=== PATIENT | male | born 1945 | race Caucasian/White ===

== ENCOUNTER 2016-11-12 18:22 | Emergency (ER) | payer MEDICARE, OTHER ==
[~2016-11-12] VITALS: Ht 185.4 cm; Wt 127.0 kg
--- OUTSIDE RECORDS SUMMARY | 2016-11-12 18:28 | XMS REPORT | Continuity of Care Document ---
Author Author [facility] Organization [facility] Address Unknown Phone Unavailable Care Team Providers Care Drill Grinder Name Role Phone DONNELL LUCIANO MD PCP Insurance Providers Payer Name Policy Number Subscriber Name Relationship [employer] [id number] Fela Christopher 18 Self / Same As Patient For Life [id number] Fela Christopher 18 Self / Same As Patient Advance Directives Directive Response Recorded Date/Time Advance Directives No 10/29/16 12:30pm Resuscitation Status Full Code 10/29/16 12:30pm Chief Complaint and Reason for Visit Chief Complaint Back Problems Reason for Visit Exacerbation of chronic back pain [id number] Problems Active Problems Medical Problem Onset Date Status Exacerbation of chronic back pain Unknown Acute Lumbar stenosis Unknown Acute Medications No medication information available. Social History Social History Problem Response Recorded Date/Time Alcohol Use Denies Use 10/29/2016 12:30pm Recreational Drug Use No 10/29/2016 12:30pm Recent Foreign Travel No 10/29/2016 12:48pm Recent Infectious Disease Exposure No 10/29/2016 12:48pm Smoking Status Unknown if Ever Smoked 10/29/2016 12:30pm Query Response Start Date Stop Date Smoking Status Unknown if Ever Smoked Hospital Discharge Instructions No hospital discharge instructions. Plan of Care Discharge Date 10/29/16 5:25pm Disposition 02 XFER SHT-TRM HOSP Condition at Discharge Improved Prescriptions See Medication Section Referrals DONNELL LUCIANO MD - Primary Care Physician Functional Status No functional status results. Allergies, Adverse Reactions, Alerts No known allergies. Immunizations No immunization records. Vital Signs Acute Vital Signs Vital Response Date/Time Temperature (Fahrenheit) 97.2 degrees F (97.6 - 99.5) 10/29/2016 5:25pm Temperature (Calculated Celsius) 36.94550 degrees C (36.4 - 37.5) 10/29/2016 5:25pm Temperature Source Temporal 10/29/2016 5:25pm Pulse Rate (adult) 70 bpm (60 - 90) 10/29/2016 5:25pm Respiratory Rate 16 bpm (12 - 24) 10/29/2016 5:25pm O2 Sat by Pulse Oximetry 98 % (88 - 100) 10/29/2016 5:25pm Blood Pressure 132/68 mm Hg 10/29/2016 5:25pm Pain Numeric Pain Scale 2 10/29/2016 5:25pm Height (Feet) 6 feet 10/29/2016 12:48pm Height (Inches) 2 inches 10/29/2016 12:48pm Height (Calculated Centimeters) 187.206103 cm 10/29/2016 12:48pm Weight (Pounds) 250 pounds 10/29/2016 12:48pm Weight (Calculated Kilograms) 113.402688 kilograms 10/29/2016 12:48pm Capillary Refill Capillary Refill Less Than 3 Seconds 10/29/2016 12:48pm Height 6 ft 2 in Weight 250 lb Body Mass Index 32.1 kg/m^2 Results Laboratory Results Test Name Result Units Flags Reference Collection Date/Time Result Date/ Time Comments White Blood Count 7.3 10^3/uL 4.3-11.0 10/29/2016 1:45pm 10/29/2016 1: 51pm Red Blood Count 3.43 10^6/uL L 4.35-5.85 10/29/2016 1:45pm 10/29/2016 1: 51pm Hemoglobin 10.6 G/DL L 13.3-17.7 10/29/2016 1:45pm 10/29/2016 1:51pm Hematocrit 32 % L 40-54 10/29/2016 1:45pm 10/29/2016 1:51pm Mean Corpuscular Volume 93 FL 80-99 10/29/2016 1:45pm 10/29/2016 1: 51pm Mean Corpuscular Hemoglobin 31 PG 25-34 10/29/2016 1:45pm 10/29/2016 1: 51pm Mean Corpuscular Hemoglobin Concent 33 G/DL 32-36 10/29/2016 1:45pm 1:51pm Red Cell Distribution Width 12.9 % 10.0-14.5 10/29/2016 1:45pm 2015 1:51pm Platelet Count 197 10^3/uL 130-400 10/29/2016 1:45pm 10/29/2016 1:51pm Mean Platelet Volume 9.1 FL 7.4-10.4 10/29/2016 1:45pm 10/29/2016 1: 51pm Neutrophils (%) (Auto) 54 % 42-75 10/29/2016 1:45pm 10/29/2016 1:51pm Lymphocytes (%) (Auto) 28 % 12-44 10/29/2016 1:45pm 10/29/2016 1:51pm Monocytes (%) (Auto) 11 % 0-12 10/29/2016 1:45pm 10/29/2016 1:51pm Eosinophils (%) (Auto) 6 % 0-10 10/29/2016 1:45pm 10/29/2016 1:51pm Basophils (%) (Auto) 1 % 0-10 10/29/2016 1:45pm 10/29/2016 1:51pm Neutrophils # (Auto) 4.0 X 10^3 1.8-7.8 10/29/2016 1:45pm 10/29/2016 1: 51pm Lymphocytes # (Auto) 2.0 X 10^3 1.0-4.0 10/29/2016 1:45pm 10/29/2016 1: 51pm Monocytes # (Auto) 0.8 X 10^3 0.0-1.0 10/29/2016 1:45pm 10/29/2016 1: 51pm Eosinophils # (Auto) 0.5 10^3/uL H 0.0-0.3 10/29/2016 1:45pm 10/29/2016 1 :51pm Basophils # (Auto) 0.1 10^3/uL 0.0-0.1 10/29/2016 1:45pm 10/29/2016 1: 51pm Urine Color YELLOW 10/29/2016 1:15pm 10/29/2016 1:43pm Urine Clarity CLEAR 10/29/2016 1:15pm 10/29/2016 1:43pm Urine pH 5 5-9 10/29/2016 1:15pm 10/29/2016 1:43pm Urine Specific [place] 1.020 1.016-1.022 10/29/2016 1:15pm 2015 1:43pm Urine Protein NEGATIVE NEGATIVE 10/29/2016 1:15pm 10/29/2016 1:43pm Urine Glucose (UA) NEGATIVE NEGATIVE 10/29/2016 1:15pm 10/29/2016 1: 43pm Urine RBC (Auto) NEGATIVE NEGATIVE 10/29/2016 1:15pm 10/29/2016 1: 43pm Urine Ketones NEGATIVE NEGATIVE 10/29/2016 1:15pm 10/29/2016 1:43pm Urine Nitrite NEGATIVE NEGATIVE 10/29/2016 1:15pm 10/29/2016 1:43pm Urine Bilirubin NEGATIVE NEGATIVE 10/29/2016 1:15pm 10/29/2016 1: 43pm Urine Urobilinogen NORMAL MG/DL NORMAL 10/29/2016 1:15pm 10/29/2016 1: 43pm Urine Leukocyte Esterase NEGATIVE NEGATIVE 10/29/2016 1:15pm 2015 1:43pm Urine RBC NONE /HPF 10/29/2016 1:15pm 10/29/2016 1:43pm Urine WBC NONE /HPF 10/29/2016 1:15pm 10/29/2016 1:43pm Urine Bacteria NEGATIVE /HPF 10/29/2016 1:15pm 10/29/2016 1:43pm Urine Squamous Epithelial Cells RARE /HPF 10/29/2016 1:15pm 2015 1:43pm Urine Crystals NONE /LPF 10/29/2016 1:15pm 10/29/2016 1:43pm Urine Casts NONE /LPF 10/29/2016 1:15pm 10/29/2016 1:43pm Urine Mucus NEGATIVE /LPF 10/29/2016 1:15pm 10/29/2016 1:43pm Urine Culture Indicated NO 10/29/2016 1:15pm 10/29/2016 1:43pm Sodium Level 135 MMOL/L 135-145 10/29/2016 1:20pm 10/29/2016 1:53pm Potassium Level 4.9 MMOL/L 3.6-5.0 10/29/2016 1:20pm 10/29/2016 1:53pm Chloride Level 106 MMOL/L 98-107 10/29/2016 1:20pm 10/29/2016 1:53pm Carbon Dioxide Level 23 MMOL/L 21-32 10/29/2016 1:20pm 10/29/2016 1: 53pm Anion Gap 6 MMOL/L 5-14 10/29/2016 1:20pm 10/29/2016 1:53pm Blood Urea Nitrogen 29 MG/DL H 7-18 10/29/2016 1:20pm 10/29/2016 1:53pm Creatinine 1.29 MG/DL 0.60-1.30 10/29/2016 1:20pm 10/29/2016 1:53pm BUN/Creatinine Ratio 22 10/29/2016 1:20pm 10/29/2016 1:53pm Estimat Glomerular Filtration Rate 55 10/29/2016 1:20pm 10/29/2016 1:53pm GFR INTERPRETIVE DATA UNITS FOR ESTIMATED GFR (eGFR): mL/min/1.73 M2 REFERENCE RANGE FOR ESTIMATED GFR (eGFR) eGFR NORMAL eGFR >60 MODERATELY DECREASED eGFR 30-59 SEVERLY DECREASED eGFR 15-29 KIDNEY FAILURE <15 (OR DIALYSIS) Glucose Level 112 MG/DL H 70-105 10/29/2016 1:20pm 10/29/2016 1:53pm Calcium Level 9.1 MG/DL 8.5-10.1 10/29/2016 1:20pm 10/29/2016 1:53pm Total Bilirubin 0.5 MG/DL 0.1-1.0 10/29/2016 1:20pm 10/29/2016 1:53pm Alkaline Phosphatase 101 U/L 40-136 10/29/2016 1:20pm 10/29/2016 1: 53pm Aspartate Amino Transf (AST/SGOT) 19 U/L 5-34 10/29/2016 1:20pm 2015 1:53pm Alanine Aminotransferase (ALT/SGPT) 12 U/L 0-55 10/29/2016 1:20pm 10/29 1:53pm Total Protein 7.3 G/DL 6.4-8.2 10/29/2016 1:20pm 10/29/2016 1:53pm Albumin 3.8 G/DL 3.2-4.5 10/29/2016 1:20pm 10/29/2016 1:53pm Procedures No known history of procedures. Encounters Encounter Location Arrival/Admit Date Discharge/Depart Date Attending Provider Departed Emergency Room [facility] 10/29/16 11:54am 5:25pm KAIDEN IVEY MD Recent Diagnosis
[2016-11-12] MEDS ORDERED: NALOXONE 2 MG/2 ML (NARCAN) SYR ONE (18:37)
[2016-11-12] MEDS ORDERED: NALOXONE 2 MG/2 ML (NARCAN) SYR IV ONE (18:45)
[2016-11-12 19:08] LABS: BASOPHILS % (AUTO) 1 % (0-10); EOSINOPHILS % (AUTO) 13 % (0-10); LYMPHOCYTES # (AUTO) 1.4 X 10^3 (1.0-4.0); LYMPHOCYTES % (AUTO) 19 % (12-44); MEAN CORPUSCULAR HEMOGLOBIN 29 PG (25-34); MEAN CORPUSCULAR HGB CONC 32 G/DL (32-36); MEAN CORPUSCULAR VOLUME 90 FL (80-99); MEAN PLATELET VOLUME 9.4 FL (7.4-10.4); MONOCYTES # (AUTO) 0.5 X 10^3 (0.0-1.0); MONOCYTES % (AUTO) 7 % (0-12); NEUTROPHILS # (AUTO) 4.7 X 10^3 (1.8-7.8); NEUTROPHILS % (AUTO) 61 % (42-75); PLATELET COUNT 404 10^3/uL (130-400); RED BLOOD COUNT 2.79 10^6/uL (4.35-5.85); RED CELL DISTRIBUTION WIDTH 13.8 % (10.0-14.5); WHITE BLOOD COUNT 7.7 10^3/uL (4.3-11.0)
[2016-11-12 19:11] LABS: ALANINE AMINOTRANSFERASE 23 U/L (0-55); ALBUMIN 3.4 G/DL (3.2-4.5); ANION GAP 14 MMOL/L (5-14); ASPARTATE AMINO TRANSFERASE 39 U/L (5-34); BILIRUBIN,TOTAL 0.3 MG/DL (0.1-1.0); BUN/CREATININE RATIO 18; CALCIUM 9.5 MG/DL (8.5-10.1); CARBON DIOXIDE 22 MMOL/L (21-32); CHLORIDE 95 MMOL/L (98-107); CREATININE SERUM 5.76 MG/DL (0.60-1.30); GFR ESTIMATED 10; GLUCOSE 152 MG/DL (70-105); MAGNESIUM 2.5 MG/DL (1.8-2.4); POTASSIUM 5.3 MMOL/L (3.6-5.0); SODIUM 131 MMOL/L (135-145); TOTAL PROTEIN 7.5 G/DL (6.4-8.2)
--- NOTE | 2016-11-12 19:17 | ED Neurological Problem ---
General Chief Complaint: Cardiac/General Problems Stated Complaint: ELEVATED BP Source: EMS, RN notes reviewed, residential records Exam Limitations: physical impairment History of Present Illness Time seen by provider: 18:35 Initial Comments Patient transferred from a local rehab facility for reported AMS and hypotension that began earlier this date. Patient in rehab p/ undergoing back surgery @ [facility] in 2 weeks ago. Timing/Duration: 4-6 hours, constant Associated Symptoms: slurred speech other (decreased responsiveness) Allergies and Home Medications Allergies Coded Allergies: No Known Drug Allergies (Unverified , 10/29/16) Constitutional: see HPI (unable to obtain from patient secondary to decreased responsiveness/AMS.) Past Srrcogm-Yfnpgr-Ezkjrn Hx Surgeries HX Surgeries: Yes Surgeries: Abdominal, Orthopedic Respiratory Hx Respiratory Disorders: No Cardiovascular Hx Cardiac Disorders: Yes Cardiac Disorders: Hypertension Neurological Hx Neurological Disorders: Yes (spinal stenosis) Reproductive System Hx Reproductive Disorders: No Genitourinary Hx Genitourinary Disorders: No Gastrointestinal Hx Gastrointestinal Disorders: No Musculoskeletal Hx Musculoskeletal Disorders: Yes Musculoskeletal Disorders: Chronic Back Pain Endocrine Hx Endocrine Disorders: No HEENT HX ENT Disorders: No Cancer Hx Cancer: No Psychosocial Hx Psychiatric Problems: No Integumentary HX Skin/Integumentary Disorder: No Blood Transfusions Hx Blood Disorders: No Physical Exam Vital Signs Vital Sign - Last 12Hours 11/12/16 18:22 Temp 97.9 Pulse 98 Resp 18 B/P 147/62 Pulse Ox 92 O2 Delivery Nasal Cannula O2 Flow Rate 2 Capillary Refill : General Appearance: WD/WN no apparent distress obese HEENT: pharynx normal (very dry) other (pupils equal but sluggish) Neck: supple Respiratory: lungs clear Cardiovascular: regular rate, rhythm Gastrointestinal: soft Neurologic/Psychiatric: other (patient very somnolent but does react briefly to loud verbal and painful stimuli.) Motor/Sensory: other (moves everything) Skin: warm/dry Progress/Results/Core Measures Results/Orders Lab Results Laboratory Tests Test 11/12/16 18:25 11/12/16 19:30 Range/Units Alanine Aminotransferase (ALT/SGPT) 23 0-55 U/L Albumin 3.4 3.2-4.5 G/DL Alkaline Phosphatase 131 40-136 U/L Anion Gap 14 5-14 MMOL/L Aspartate Amino Transf (AST/SGOT) 39 H 5-34 U/L B-Type Natriuretic Peptide 15.1 <100.0 PG/ML BUN/Creatinine Ratio 18 Basophils # (Auto) 0.0 0.0-0.1 10^3/uL Basophils (%) (Auto) 1 0-10 % Blood Urea Nitrogen 103 *H 7-18 MG/DL Calcium Level 9.5 8.5-10.1 MG/DL Carbon Dioxide Level 22 21-32 MMOL/L Chloride Level 95 L 98-107 MMOL/L Creatinine 5.76 H 0.60-1.30 MG/DL Eosinophils # (Auto) 1.0 H 0.0-0.3 10^3/uL Eosinophils (%) (Auto) 13 H 0-10 % Estimat Glomerular Filtration Rate 10 Glucose Level 152 H 70-105 MG/DL Hematocrit 25 L 40-54 % Hemoglobin 8.1 L 13.3-17.7 G/DL Lactic Acid Level 1.1 0.5-2.0 MMOL/L Lymphocytes # (Auto) 1.4 1.0-4.0 X 10^3 Lymphocytes (%) (Auto) 19 12-44 % Magnesium Level 2.5 H 1.8-2.4 MG/DL Mean Corpuscular Hemoglobin 29 25-34 PG Mean Corpuscular Hemoglobin Concent 32 32-36 G/DL Mean Corpuscular Volume 90 80-99 FL Mean Platelet Volume 9.4 7.4-10.4 FL Monocytes # (Auto) 0.5 0.0-1.0 X 10^3 Monocytes (%) (Auto) 7 0-12 % Neutrophils # (Auto) 4.7 1.8-7.8 X 10^3 Neutrophils (%) (Auto) 61 42-75 % Platelet Count 404 H 130-400 10^3/uL Potassium Level 5.3 H 3.6-5.0 MMOL/L Red Blood Count 2.79 L 4.35-5.85 10^6/uL Red Cell Distribution Width 13.8 10.0-14.5 % Sodium Level 131 L 135-145 MMOL/L Total Bilirubin 0.3 0.1-1.0 MG/DL Total Protein 7.5 6.4-8.2 G/DL Troponin I < 0.30 <0.30 NG/ML White Blood Count 7.7 4.3-11.0 10^3/uL Ur Tricyclic Antidepressants Screen NEGATIVE NEGATIVE Urine Amorphous Sediment RARE SELWYN URATES H /LPF Urine Amphetamines Screen NEGATIVE NEGATIVE Urine Bacteria NONE /HPF Urine Barbiturates Screen NEGATIVE NEGATIVE Urine Benzodiazepines Screen POSITIVE H NEGATIVE Urine Bilirubin NEGATIVE NEGATIVE Urine Cannabinoids Screen NEGATIVE NEGATIVE Urine Casts NONE /LPF Urine Clarity CLEAR Urine Cocaine Screen NEGATIVE NEGATIVE Urine Color YELLOW Urine Crystals PRESENT H /LPF Urine Culture Indicated NO Urine Glucose (UA) NEGATIVE NEGATIVE Urine Ketones NEGATIVE NEGATIVE Urine Leukocyte Esterase NEGATIVE NEGATIVE Urine Methadone Screen NEGATIVE NEGATIVE Urine Methamphetamines Screen NEGATIVE NEGATIVE Urine Mucus NEGATIVE /LPF Urine Nitrite NEGATIVE NEGATIVE Urine Opiates Screen NEGATIVE NEGATIVE Urine Oxycodone Screen POSITIVE H NEGATIVE Urine Phencyclidine Screen NEGATIVE NEGATIVE Urine Propoxyphene Screen NEGATIVE NEGATIVE Urine Protein 1+ H NEGATIVE Urine RBC NONE /HPF Urine RBC (Auto) NEGATIVE NEGATIVE Urine Specific [place] 1.020 1.016-1.022 Urine Squamous Epithelial Cells 0-2 /HPF Urine Urobilinogen NORMAL NORMAL MG/DL Urine WBC NONE /HPF Urine pH 5 5-9 Micro Results Microbiology 11/12/16 Blood Culture - Preliminary, Resulted No growth 11/12/16 Blood Culture - Preliminary, Resulted No growth My Orders Orders-LEANDRO SHEPPARD DO Naloxone Injection (Narcan Injection) (11/12/16 18:37) Ekg Tracing (11/12/16 18:49) BNP (11/12/16 18:49) Cbc With Automated Diff (11/12/16 18:49) Comprehensive Metabolic Panel (11/12/16 18:49) Drug Screen Stat (Urine) (11/12/16 18:49) Magnesium (11/12/16 18:49) Troponin I (11/12/16 18:49) Ua Culture If Indicated (11/12/16 18:49) Blood Culture (11/12/16 18:49) Lactic Acid Analyzer (11/12/16 18:49) Chest 1 View, Ap/Pa Only (11/12/16 18:49) Ct Head Wo-R/O Stroke (11/12/16 18:49) Saline Lock/Iv-Start (11/12/16 19:21) Lactated Ringers (Lr 1000 Ml Iv Solution (11/12/16 19:21) Naloxone Injection (Narcan Injection) (11/12/16 18:45) Flumazenil Injection (Romazecon Injectio (11/12/16 21:30) Saline Lock/Iv-Start (11/12/16 23:38) Lactated Ringers (Lr 1000 Ml Iv Solution (11/12/16 23:38) Lactated Ringers (Lr 1000 Ml Iv Solution (11/12/16 23:34) Iv Push Dope Pourer Ed (11/12/16 ) Vital Signs/I&O Vital Sign - Last 12Hours 11/12/16 11/12/16 11/12/16 11/12/16 18:22 20:15 21:15 22:15 Temp 97.9 97.9 97.9 98.1 Pulse 98 92 97 89 Resp 18 18 20 16 B/P 147/62 130/54 148/60 106/92 Pulse Ox 92 98 99 100 O2 Delivery Nasal Cannula Nasal Cannula Nasal Cannula Nasal Cannula O2 Flow Rate 2 2 2 2 11/12/16 11/12/16 23:15 23:57 Temp 98.4 98.4 Pulse 95 97 Resp 16 18 B/P 115/50 Pulse Ox 99 100 O2 Delivery Nasal Cannula Nasal Cannula O2 Flow Rate 2 2 Progress Note : Progress Note There is some ? of whether the patient's might be slipping him Valium which might be the cause of his AMS. Apparently she was caught doing so when the patient was up @ [facility] recently p/ undergoing back sx. She was apparently c/ him today [employer] and reportedly unsupervised. Also patient's UDS is (+) for benzo's and a review of his med list from rehab does not appear to include any benzo's. ECG Initial ECG Impression Date: Nov 12, 2016 Initial ECG Impression Time: 19:10 Initial ECG Rate: 98 Initial ECG Rhythm: Normal Sinus Initial ECG Impression: Nonspecific Changes (PAC; borderline LAD) Diagnostic Imaging Diagonstic Imaging: Xray, CT Plain Films/CT/US/NM/MRI: chest (nothing acute), head (nothing acute) Departure Impression Impression: Primary Impression: Altered mental state Additional Impressions: ARF (acute renal failure) Hypotension Anemia Disposition: 02 XFER SHT-TRM HOSP Condition: Stable Transfer Transfer Notes Patient's PCP requests patient be transferred to a facility c/ renal capabilities, including dialysis should that become necessary. Discussed c/ the patient who is much more alert now and he requests transfer to [facility] rather than transfer back to ([facility]) since it is a lot closer. Transfer Time: 22:00 Transfer Facility: [place] Method of Transfer: EMS Departure-Patient Inst. Referrals: DONNELL LUCIANO MD (PCP/Family) Primary Care Physician LEANDRO SHEPPARD DO Nov 12, 2016 19:17
[2016-11-12 19:18] LABS: BLOOD UREA NITROGEN 103 MG/DL (7-18); TROPONIN I < 0.30 NG/ML (<0.30)
[2016-11-12] MEDS ORDERED: LACTATED RINGERS 1,000 ML IV ONE ×3 (19:21→23:38)
[2016-11-12 19:41] LABS: BILIRUBIN,URINE NEGATIVE (NEGATIVE); KETONES,URINE NEGATIVE (NEGATIVE); LEUKOCYTE ESTERASE ,URINE NEGATIVE (NEGATIVE); NITRITE,URINE NEGATIVE (NEGATIVE); PH,URINE 5 (5-9); PROTEIN,URINE 1+ (NEGATIVE); UROBILINOGEN,URINE NORMAL (NORMAL)
[2016-11-12 19:48] LABS: SQUAMOUS EPITHELIAL CELL,UR 0-2 /HPF
--- NOTE | 2016-11-12 20:08 | Diagnostic Imaging Report ---
INDICATION: Weakness and little response to verbal commands. COMPARISON: None PROCEDURE: Unenhanced helical CT imaging through the brain is performed. FINDINGS: No acute intracranial hemorrhage, mass effect or edema is demonstrated. The wallace-white junction is preserved. The ventricles appear normal. No focal abnormality is suspected. The paranasal sinuses and mastoids appear clear as visualized. IMPRESSION: There is no evidence of an acute intracranial abnormality. Dictated by: Dictated on workstation # [id number]
--- NOTE | 2016-11-12 20:19 | Diagnostic Imaging Report ---
INDICATION: Weakness and decreased response to verbal commands. COMPARISON: None FINDINGS: Upright portable view of the chest is obtained. Heart size is upper limits of normal for technique. There is no pulmonary vascular congestion. There is no pneumothorax, mediastinal widening or pleural fluid demonstrated. There is mild elevation of the right hemidiaphragm. The lungs are clear. IMPRESSION: No evidence of an acute cardiopulmonary abnormality. Dictated by: Dictated on workstation # [id number]
[2016-11-12] MEDS ORDERED: FLUMAZENIL (ROMAZICON) 0.1 MG/ML 5 ML VIAL IV ONE (21:30)
[2016-11-12 23:57] VITALS: BP 117/53
== END 2016-11-12 23:57 ==
LOC: EDUNIT# 18:22 → ER 18:23
DX: R41.82 Altered mental status, unspecified (principal); I95.9 Hypotension, unspecified; N17.9 Acute kidney failure, unspecified; D64.9 Anemia, unspecified; Z79.899 Other long term (current) drug therapy; Z98.890 Other specified postprocedural states
CPT/HCPCS: 36415; 70450; 71010; 80053; 80306; 81000; 83605; 83735; 83880; 84484; 85025; 87040; 93005; 96361; 96374

== ENCOUNTER 2019-02-09 10:52 | Outpatient (CLI) | payer MEDICARE, OTHER ==
[~2019-02-09] VITALS: Ht 188 cm; Wt 134.7 kg
[~2019-02-09 10:52] MED LIST: ALLO300T2 PO; AMLO10TA7 PO; ATOR40TA70 PO; FERR-84 PO; FOLI1TAB24 PO
== END 2019-02-09 10:53 ==
LOC: PREOP 10:52
PROVIDERS: ATTEND Surgery
DX: Z01.818 Encounter for other preprocedural examination (principal)

== ENCOUNTER 2019-02-11 09:54 | Day surgery (SDC) | payer MEDICARE, OTHER ==
[~2019-02-11] VITALS: Ht 188 cm; Wt 134.7 kg
[2019-02-11] MEDS ORDERED: NS IV 500 ML 500 ML IV PRN (10:04)
[2019-02-11] MEDS ORDERED: NS IV 500 ML 500 ML ONE (10:14)
[2019-02-11] MEDS ORDERED: MIDAZOLAM 2 MG/2 ML (VERSED) VIAL IVP ONE (10:15)
[2019-02-11] MEDS ORDERED: fentaNYL INJECTION 100 MCG/2 ML AMP IVP ONE (10:15)
[2019-02-11] MEDS ORDERED: HURRICAINE EXT TUBE (BENZOCAINE) XX PRN (10:15)
[2019-02-11] MEDS ORDERED: LIDOCAINE JELLY 2% 6 ML SYRINGE MM PRN (10:15)
--- NOTE | 2019-02-11 10:24 | Conscious Sedation/ASA ---
Conscious Sedation Pre-Proced Time 10:20 ASA Score 2 For ASA 3 and 4: Consider anesthesia and medical clearance. Also, for patients with a history of failed moderate sedation consider anesthesia. Airway Lungs Heart ASA score ASA 1: a normal healthy patient ASA 2: a patient with a mild systemic disease (mid diabetes, controlled hypertension, obesity ASA 3: a patient with a severe systemic disease that limits activity (angina , COPD, prior Myocardial infarction) ASA 4: a patient with an incapacitating disease that is a constant threat to life (CHF, renal failure) ASA 5: a moribund patient not expected to survive 24 hrs. (ruptured aneurysm) ASA 6: a declared brain- patient whose organs are being harvested. For emergent operations, add the letter E after the classification Mallampati Classification Grade 2 Sedation Plan Analgesia, Amnesia, Plan communicated to team members, Discussed options with patient/fam, Discussed risks with patient/fam The patient is an appropriate candidate to undergo the planned procedure, sedation, and anesthesia. The patient immediately re-assessed prior to indication. BRIAN MENDEZ MD Feb 11, 2019 10:24
--- NOTE | 2019-02-11 10:25 | Progress Note-Pre Operative ---
Pre-Operative Progress Note H&P Reviewed The H&P was reviewed, patient examined and no changes noted. Date Seen by Provider: Feb 11, 2019 Time Seen by Provider: 10:20 Date H&P Reviewed: Feb 11, 2019 Time H&P Reviewed: 10:20 Pre-Operative Diagnosis: anemia, dysphagia, screening BRIAN MENDEZ MD Feb 11, 2019 10:25
[2019-02-11] MEDS ORDERED: PANT40TA2 PO ×2 (10:26)
--- NOTE | 2019-02-11 10:27 | Discharge Inst-Surgical ---
D/C Lap Instructions-KIDO New, Converted, or Re-Newed RX: RX on Chart Follow Up Activity as tolerated High Fiber Diet 25g or more per day Avoid Alcohol, Caffeine, Spicy [place] and Acid foods. Drink 64 fluid oz or more of fluids per day. Symptoms to Report: Fever over 101 degree F, Nausea/Vomiting If any problems/questions: Contact your physician or go to Emergency Room BRIAN MENDEZ MD Feb 11, 2019 10:27
[2019-02-11] MEDS ORDERED: morphine INJ 10 MG/ML 1ML (SYR OR VIAL) IV PRN (10:30)
[2019-02-11] MEDS ORDERED: ONDANSETRON 4 MG/2 ML (SDV) Z0FRAN IV PRN (10:30)
[2019-02-11] MEDS ORDERED: ACETAMINOPHEN 325 MG TABLET PO PRN (10:30)
[2019-02-11] MEDS ORDERED: HYDROcodone/APAP 5 MG/325 MG (LORTAB) TAB PO PRN (10:30)
[2019-02-11] MEDS ORDERED: LIDOCAINE JELLY 2% 6 ML SYRINGE ONE (11:13)
[2019-02-11] MEDS ORDERED: HURRICAINE EXT TUBE (BENZOCAINE) ONE (11:14)
[2019-02-11] MEDS ORDERED: fentaNYL INJECTION 100 MCG/2 ML AMP ONE (11:14)
[2019-02-11] MEDS ORDERED: MIDAZOLAM 2 MG/2 ML (VERSED) VIAL ONE ×5 (11:14)
[2019-02-11 12:25] VITALS: BP 168/77
--- NOTE | 2019-02-11 12:27 | Progress Note-Post Operative ---
Post-Operative Progess Note Surgeon (s)/Microstrategy Bi Developer (s) Surgeon BRIAN MENDEZ MD Microstrategy Bi Developer: none Pre-Operative Diagnosis anemia, dysphagia, screening Post-Operative Diagnosis reflux esophagitis(stage), distal esophageal stricture and schatzki ring, small HH(1cm), mild gastritis. mild chronic stage 2 ext and int hemorrhoids, mild-mod sigmoid diverticulosis. Procedure & Operative Findings Date of Procedure 02/11/19 Procedure Performed/Findings EGD with bx and balloon dilatation. Colonoscopy. Anesthesia Type CS Estimated Blood Loss Estimated blood loss (mL): minimal Specimens/Packing Specimens Removed ge jxn, antrum BRIAN MENDEZ MD Feb 11, 2019 12:27
[2019-02-11 13:05] VITALS: BP 170/97
[2019-02-11 13:50] VITALS: BP 170/97
--- NOTE | 2019-02-11 16:11 | OPERATIVE REPORT ---
DATE OF SERVICE: 02/11/2019 ATTENDING PRIMARY CARE PHYSICIAN: Dr. Morrow. PREOPERATIVE DIAGNOSES: Dysphagia, anemia, screening. POSTOPERATIVE DIAGNOSES: Reflux esophagitis stage II with mild distal esophageal stricture, small hiatal hernia approximately 1 cm in size, mild gastritis. Chronic stage II external and internal hemorrhoids, mild to moderate sigmoid diverticulosis. PROCEDURE: EGD with biopsy and balloon dilatation. Colonoscopy. SURGEON: Brian Mendez MD ANESTHESIA: Conscious sedation. ESTIMATED BLOOD LOSS: Minimal. FINDINGS: Reflux esophagitis stage II with mild distal esophageal stricture, small hiatal hernia approximately 1 cm in size, mild gastritis. Chronic stage II external and internal hemorrhoids, mild to moderate sigmoid diverticulosis. DISPOSITION: The patient tolerated the procedure well. The patient is a 73-year-old male who we have seen before in the past. We have done a colonoscopy on him 10 years ago, which was normal. 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 He was placed on iron one year ago; however, his hemoglobin did not increase appropriately. He also does report issues with dysphagia in the past several years and will feel substernal pressure sensation after food bolus which were eventually reduced on its own. He also does have occasional constipation one to two times a month. He does not report any red blood per rectum nor any dark tarry stools. He also does not report any family history of colon cancer. DESCRIPTION OF PROCEDURE: The patient was brought to the endoscopy suite, laid in the left lateral decubitus position with head slightly elevated. After adequate IV pain and sedative medications and conscious sedation anesthesia, the mouthpiece was applied. The endoscope was placed in the mouth, visualizing the pharynx and hypopharyngeal region. Vocal cords, epiglottis and vallecula identified and appeared to be normal. The endoscope was then gently intubated at the esophageal opening and esophagus insufflated. The endoscope was then advanced to the 1st, 2nd, 3rd portions of the esophagus at the level of the GE junction, a reflux esophagitis stage II identified. There is also a distal esophageal stricture and Schatzki's ring identified. A biopsy was taken of this region using forceps with visualization of good hemostasis. The endoscope was then advanced in the stomach and endoscope retroflexed, visualizing a small hiatal hernia approximately 1 cm in size. There is a mild gastritis. No formal ulcerations, polyps or any neoplasms. Pylorus and duodenum appeared normal with no distal obstructions. A biopsy was taken of the stomach antrum with forceps with visualization of good hemostasis. We then proceeded with a balloon dilatation of the esophageal stricture. The balloon was placed in the stomach and then pulled back to the area of the stricture. The balloon was insufflated 2 atmospheres pressure with no resistance. We then proceeded to 4 atmospheres of pressure with mild resistance. We then proceeded to 6 atmospheres of pressure or 20 mm in luminal diameter with moderate resistance and left this in place for approximately 60 seconds. The balloon was desufflated and removed with visualization of good hemostasis as well as no mucosal tears. The endoscope was then slowly withdrawn while taking a second look and suctioning of residual air with no additional findings. The patient tolerated this portion of procedure well. We will recommend the necessary lifestyle and diet accommodation including small and more frequent meals, avoiding eating at night as well as head elevation while lying supine. He also needs to avoid caffeinated beverages, spicy, greasy and acidic foods. We will also start him on Protonix 40 mg daily. He may need greater dilatation and if he does have recurrent symptoms of dysphagia, we will have him follow up for repeat balloon dilatation. We then proceeded with the colonoscopy portion of the procedure. A digital rectal examination was performed, which revealed mild chronic stage II external and internal hemorrhoids, not actively edematous nor inflamed and no bleeding. Normal sphincter tone was felt and there were no palpable masses. Prostate gland was palpable and appeared normal. The endoscope was then intubated to the anus and rectum gently insufflated. The endoscope was then advanced to the valves of Guzman of the rectum with no polyps or any neoplasms identified. The endoscope was then advanced through the sigmoid colon where mild to moderate sigmoid diverticulosis identified. There were no mucosal inflammatory changes to indicate any active diverticulitis. The endoscope was then advanced to the remainder of the descending, transverse and ascending colon to the cecum. These segments were normal. There were no polyps or any neoplasms identified as well as no active bleeding source is identified. The endoscope was then slowly withdrawn while taking a second look and suctioning of residual air with no additional findings. The patient tolerated the procedure well. We feel that the cause of his anemia may be related to the reflux esophagitis and mild slow blood loss this way; however, there is also the possibility of diverticular bleeding on an intermittent basis that is unrecognized. No neoplasms or active bleeding were identified. We will recommend conservative management with a high fiber diet with at least 30 grams of fiber as well as significant amounts of water to promote soft stools on a daily basis. If he is asymptomatic, he does not need another colonoscopy for another 10 years; however, sooner if he does. Job ID: [id number] DocumentID: [id number] Dictated Date: 02/11/2019 12:28:38 Hull Drafter Date: 02/11/2019 16:10:15 Dictated By: BRIAN MENDEZ MD [facility]
== END 2019-02-11 13:50 | disposition home or self-care (01) ==
LOC: ENDO 09:54
PROVIDERS: ATTEND Surgery
DX: Z12.11 Encounter for screening for malignant neoplasm of colon (principal); K21.0 Gastro-esophageal reflux disease with esophagitis; K22.2 Esophageal obstruction; K44.9 Diaphragmatic hernia without obstruction or gangrene; K29.70 Gastritis, unspecified, without bleeding; K31.89 Other diseases of stomach and duodenum; K57.30 Diverticulosis of large intestine without perforation or abscess without bleeding; K64.1 Second degree hemorrhoids; D64.9 Anemia, unspecified; I10 Essential (primary) hypertension; E78.00 Pure hypercholesterolemia, unspecified; M10.9 Gout, unspecified; Z87.891 Personal history of nicotine dependence; Z79.899 Other long term (current) drug therapy
CPT/HCPCS: 43239; 43249; G0121

== ENCOUNTER → 2019-02-12 | Outpatient (CLI) | payer MEDICARE, OTHER ==
[~2019-02-12] MED LIST changes: +PANT40TA2 PO
== END ==
LOC: CARD 13:24
PROVIDERS: ATTEND Internal Medicine Cardiovascular Disease
DX: D64.9 Anemia, unspecified (principal); I10 Essential (primary) hypertension; E78.2 Mixed hyperlipidemia; E66.9 Obesity, unspecified; M19.90 Unspecified osteoarthritis, unspecified site; R06.09 Other forms of dyspnea
CPT/HCPCS: 93306

== ENCOUNTER → 2019-02-18 | Outpatient (CLI) | payer MEDICARE, OTHER ==
[~2019-02-18] VITALS: Ht 188 cm; Wt 134.7 kg
[~2019-02-18] MED LIST changes: +CATHETER FLUSH 10 ML SYR IV PRN; +REGADENOSON 0.4 MG/5 ML SYR (LEXISCAN) IV ONE
[2019-02-18 09:03] VITALS: BP 157/79
[2019-02-18 09:06] VITALS: BP 161/81
--- NOTE | 2019-02-18 11:54 | STRESS TEST ---
DATE OF SERVICE: 02/18/2019 LEXISCAN MYOVIEW STRESS TEST REPORT REFERRING PHYSICIAN: Dr. Morrow. Baseline heart rate is 77 and baseline blood pressure is 156/88. Baseline EKG is sinus rhythm with no ischemic changes. In summary, the patient received 10.88 mCi of technetium-99 Myoview and the resting images were obtained. Then, he received 0.4 mg of Lexiscan followed by 29.8 mCi of technetium-99 Myoview. Throughout the test, there were no EKG changes. Occasional PACs were noted. The resting and stress images were reviewed and compared in the short axis, horizontal long axis and vertical long axis views. Review of the images showed diaphragmatic attenuation with reversible ischemia involving the mid to apical inferolateral and anterolateral wall. SSS is 7, SDS is 4. No TID value was acquired. Gated images showed diffuse left ventricular hypokinesia and calculated ejection fraction of 34%. CONCLUSION: 1. The patient tolerated the Lexiscan well. 2. Diaphragmatic attenuation with reversible ischemia involving the mid to apical inferolateral and anterolateral wall. 3. Diffuse left ventricular hypokinesia with the calculated ejection fraction of 34%. Job ID: [id number] DocumentID: [id number] Dictated Date: 02/18/2019 11:23:54 Outboard Motor Inspector Date: 02/18/2019 11:53:08 Dictated By: BRANDEN KIDD MD
== END ==
LOC: CARD 07:19
PROVIDERS: ATTEND Internal Medicine Cardiovascular Disease
DX: I10 Essential (primary) hypertension (principal); E78.2 Mixed hyperlipidemia; R06.09 Other forms of dyspnea; D64.9 Anemia, unspecified; M19.91 Primary osteoarthritis, unspecified site; E66.9 Obesity, unspecified; Z68.38 Body mass index [BMI] 38.0-38.9, adult
CPT/HCPCS: 78452; 93017

== ENCOUNTER → 2019-07-17 | Outpatient (CLI) | payer MEDICARE, OTHER ==
[~2019-07-17] MED LIST changes: -CATHETER FLUSH 10 ML SYR IV PRN; -REGADENOSON 0.4 MG/5 ML SYR (LEXISCAN) IV ONE; +RT-ALBUTEROL SULF 2.5 MG/3 ML PRE-MIX VIAL INH ONE
== END ==
LOC: RT 10:32
PROVIDERS: ATTEND Physician Assistant
DX: E78.2 Mixed hyperlipidemia (principal); I10 Essential (primary) hypertension; Z87.891 Personal history of nicotine dependence
CPT/HCPCS: 94060; 94726; 94729

== ENCOUNTER → 2020-10-03 | Outpatient (CLI) | payer MEDICARE, OTHER ==
[~2020-10-03] MED LIST changes: +AMLO-251 PO; -AMLO10TA7 PO; -RT-ALBUTEROL SULF 2.5 MG/3 ML PRE-MIX VIAL INH ONE
--- NOTE | 2020-10-03 14:56 | Diagnostic Imaging Report ---
INDICATION: Pain status post injury. COMPARISON: None. FINDINGS: Frontal and lateral radiographic views of the right tibia and fibula were obtained and show no fractures, dislocations, or other acute bony abnormalities. Mild osteoarthritic changes of the tibiotalar joint space are noted. Otherwise, joint spaces are maintained. The soft tissues appear unremarkable. No radiopaque foreign bodies are identified. IMPRESSION: Unremarkable radiographic exam of the right tibia and fibula. Dictated by: Dictated on workstation # [id number]
--- NOTE | 2020-10-03 14:58 | Diagnostic Imaging Report ---
INDICATION: Knee pain status post fall COMPARISON: None. FINDINGS: Three views of the right knee joint demonstrate no acute fracture or dislocation. No focal osseous lesions are seen. There is small suprapatellar joint effusion. Note is also made of mild osteoarthritic disease. The surrounding soft tissue structures are unremarkable. There are no radiopaque foreign bodies. IMPRESSION: 1. Small suprapatellar joint effusion, no evidence of acute fracture or dislocation of the right knee. Dictated by: Dictated on workstation # [id number]
== END ==
LOC: RAD 13:41
PROVIDERS: ATTEND Nurse Practitioner Family
DX: M25.461 Effusion, right knee (principal)
CPT/HCPCS: 73562; 73590

== ENCOUNTER → 2022-05-29 | Outpatient (CLI) | payer MEDICARE, OTHER ==
[~2022-05-29] MED LIST changes: -FOLI1TAB24 PO; +FOLI1TAB33 PO
--- NOTE | 2022-05-29 16:27 | Diagnostic Imaging Report ---
INDICATION: RT HIP PAIN COMPARISON: None. FINDINGS: 2 views of the right hip were obtained and show no fractures, dislocations, or other acute bony abnormalities. Joint spaces are well maintained throughout. The soft tissues appear unremarkable. No unexpected radiopaque foreign bodies are identified. IMPRESSION: Unremarkable radiographic exam of the right hip. Dictated by: Dictated on workstation # [id number]
== END ==
LOC: RAD 15:15
PROVIDERS: ATTEND Nurse Practitioner Family
DX: M25.551 Pain in right hip (principal)
CPT/HCPCS: 73502